=== PATIENT | male | born 1980 | race African-American/Black ===

== ENCOUNTER 2024-07-03 19:38 | Emergency (ER) | payer OTHER, SELFPAY ==
[2024-07-03 19:41] VITALS: BP 149/90
[2024-07-03 19:43] VITALS: BP 149/90
[2024-07-03 20:00] VITALS: BP 123/75
[2024-07-03 21:00] VITALS: BP 140/100
--- NOTE | 2024-07-03 21:19 | ED.MUSCINJ ---
HPI-Injury
<Ann Baker NP - Last Filed: 07/06/24 13:08>
General
Chief Complaint: Musculo-Skeletal Complaint
Source: patient
Exam Limitations: none
Time Seen by Provider: 07/03/24 19:53
Nursing documentation reviewed up to this point in time: agreed with
History of Present Illness-Injury
Is this injury a work related problem?: No
Is pt an associate of [facility]?: No
Initial Injury comments:
Patient to ED with complaint of numbness and tingling to left forearm and weakness to left wrist. Symptoms started today. Reports clavicle fx 2 mos ago but no other complaints until today. [facility] and he was seen by
orthopedics but does not recall name of provider. Told clavicle is healing. Has not had any futher follow up appointment. [place] to ED by [facility] for eval.
Past History
<Ann Baker NP - Last Filed: 07/06/24 13:08>
Past History
ED Past Medical History: None
ED Past Surgical History: None
Review of Systems
<Ann Baker NP - Last Filed: 07/06/24 13:08>
Review of Systems
Allergies reviewed?: Yes
All Other Systems: ROS reviewed and negative except as documented in HPI and ROS
Constitutional: Reports no symptoms
EENT: Reports no symptoms
Respiratory: Reports no symptoms
Cardiac: Reports no symptoms
ABD/GI: Reports no symptoms
Musculoskeletal: Reports other (weakness left wrist)
Neurological: Reports numbness (numnbess and tingling to left forearm, weakness left wrist.)
Psychiatric: Reports no symptoms
Phy Exam
<Ann Baker NP - Last Filed: 07/06/24 13:08>
General Physical Exam
General Presentation: well appearing and no apparent distress
General age: appears stated age
General Skin: warm and dry
General Habitus: normal
General Mental: alert
Neurological Exam
Neurological Exam: alert, oriented x3, CN II-XII intact, speech normal and normal gait
NIH Stroke Score
Level of Consciousness: 0 - Alert
LOC questions: 0-Answers both correctly
LOC Commands: 0-Performs both correctly
Best Gaze: 0-Normal
Visual Wiley: 0=Normal, no visual loss
Facial palsy: 0=Normal, symmetrical
Motor - Right Arm: 0=No drift 10 seconds
Motor - Left Arm: 0=No drift 10 seconds
Motor - Right Le-No drift 5 seconds
Motor - Left Le-No drift 5 seconds
Limb Ataxia: 0-Absent
Sensation: 0-Normal
Best Language: 0-No aphasia
Dysarthria: 0-Normal
Extinction and Inattention: 0-No abnormality
Total Score:: 0
Musculoskeletal Exam
Musculoskeletal Exam: neuro vasc intact and other (Numbness and tingling left forearm, left wrist weakness. Radial pulse intact. Cap refill <3sec)
Skin Exam
Skin Exam: normal color, warm/dry and no rash
Psychiatric Exam
Psychiatric Exam: normal mood/affect
<Ravi Mathews PA-C - Last Filed: 07/03/24 23:12>
NIH Stroke Score
Total Score:: 0
Injury Course
<Ann Baker NP - Last Filed: 07/06/24 13:08>
Orders/Labs/Results
Orders:
Orders
07/03/24 20:49
Cervical Spine 4 or 5 Vw [CR Cervical Spine 4 Or 5 Vw] Urgent
Comment:
Reason For Exam: left arm numbness and tingling
Shoulder, Left, Trauma CR [CR Shoulder, Trauma - Left] Urgent
Comment:
Reason For Exam: left arm numbness and tingling
Wrist, Left 3 Views CR [CR Wrist - Left Min 3 Views] Urgent
Comment:
Reason For Exam: weakness
07/03/24 21:46
Heartwell Wrist Left-Treatment ONCE
<Ravi Mathews PA-C - Last Filed: 07/03/24 23:12>
Orders/Labs/Results
Orders:
Orders
07/03/24 20:49
Cervical Spine 4 or 5 Vw [CR Cervical Spine 4 Or 5 Vw] Urgent
Comment:
Reason For Exam: left arm numbness and tingling
Shoulder, Left, Trauma CR [CR Shoulder, Trauma - Left] Urgent
Comment:
Reason For Exam: left arm numbness and tingling
Wrist, Left 3 Views CR [CR Wrist - Left Min 3 Views] Urgent
Comment:
Reason For Exam: weakness
07/03/24 21:46
Heartwell Wrist Left-Treatment ONCE
<Ravi Mathews PA-C - Last Filed: 07/03/24 23:12>
*Radiology
Radiology exam reviewed: preliminary read by ED provider (Degenerative changes within the cervical spine but otherwise no fracture)
*Critical Care Note
Total Time (30-74mins, 75-104mins- exclusive of procedures): Not Applicable
<Ravi Mathews PA-C - Last Filed: 07/03/24 23:12>
Patient Management
Escalation/DeEscalation of care consider admission/obs:
Patient received in signout pending x-ray results. I do not identify any acute fractures however there are degenerative changes within the cervical spine. Given a prescription for prednisone. Will follow-up with orthopedics as an outpatient.
Aware of return precautions to the ER. Patient is medically cleared for incarceration
<Ann Baker NP - Last Filed: 07/06/24 13:08>
Update Note
Update Note:
Patient to ED with complain to left forearm numbness and tingling, weakness at left wrist. Presents as radial nerve palsy. NIH stroke scale 0. He has no other complaints. Consulted Dr. Charlton via [email or web address]. Will xray neck shoulder and wrist
tonight. If clear, will place on prednisone taper and have patient followup wtih ortho (hand) in office
ED Attending Note
<Ann Baker NP - Last Filed: 07/06/24 13:08>
-
Portions of this chart may have been created with voice recognition software.� Occasional wrong word or��sound alike� substitutions may have occurred due to the inherent limitations of voice recognition software.
Discharge Plan
Departure
Patient Disposition: Home (Routine Discharge)
Date of Disposition: 07/03/24
Time of Disposition: 22:43
Patient with high blood pressure during this ER visit?: No
Condition: Good
Covid-19: Not Applicable
Discharge Problem:
Weakness of wrist
Instructions: Radiculopathy (DC)
Prescriptions:
New
prednisone 10 mg Tablet
See Rx Instructions .ROUTE .COMPLEX Qty: 45 0RF
Rx Instructions:
Take By Mouth:
50 mg daily x3 days, 40 mg daily x3 days,
30 mg daily x3 days, 20 mg daily x3 days,
10 mg daily x3 days
Referrals:
[facility] [Family Provider] -
Olegario Luis MD [Active] - Call in 1-3 days for appt
Activity Restrictions/Additional Instructions:
Patient is medically cleared for incarceration
Interventions
Interventions:
*Risk Screen - Suicide Last Done: 07/03/24 19:40
*General Assessment Last Done: 07/03/24 19:40
*Neglect/Abuse Screening Last Done: 07/03/24 19:40
ED- Fall Risk Assessment Last Done: 07/03/24 19:46
*ED COVID-19 Vaccine History Last Done: 07/03/24 19:49
*Nursing Disposition Last Done: 07/03/24 22:49
ED-Musculoskeletal Assessment Last Done: 07/03/24 19:46
Discharge Date and Time
Discharge Date/Time: 07/03/24 22:49
Print Language: SERBIAN
[2024-07-03 22:00] VITALS: BP 120/62
== END 2024-07-03 22:49 | disposition home or self-care (01) ==
LOC: EMR 19:38
PROVIDERS: EMERGENCY PHYSICIAN Emergency Medicine
DX: R53.1 Weakness (principal); R20.2 Paresthesia of skin; R20.0 Anesthesia of skin
CPT/HCPCS: 99283; 72050; 73030; 73110

== ENCOUNTER → 2024-07-31 08:30 | Outpatient (REF) | payer OTHER, SELFPAY | LOC: EMG 08:30 | PROVIDERS: ATTENDING PHYSICIAN Orthopaedic Surgery | DX: M54.12 Radiculopathy, cervical region (principal) | CPT/HCPCS: 95886; 95912 ==